=== PATIENT | male | born 1960 | race Caucasian/White ===

== ENCOUNTER 2018-06-07 01:11 | Emergency (ER) | payer OTHER ==
[~2018-06-07 01:11] MED LIST: TRAMADOL50 MG PO
--- NOTE | 2018-06-07 01:30 | ED PSYCHIATRIC COMPLAINT ---
History of Present Illness General Chief Complaint: Psychiatric Related Complaint Stated Complaint: BIBA +SI Source: patient, EMS, police Exam Limitations: intoxication Vital Signs & Intake/Output Vital Signs & Intake/Output Vital Signs Date Time Temp Pulse Resp B/P B/P Pulse O2 O2 Flow FiO2 Mean Ox Delivery Rate 06/07 1453 97.8 94 18 137/81 96 Room Air 06/07 1055 98.3 89 20 134/74 96 Room Air 06/07 0901 98.5 82 18 128/73 96 Room Air Room Air 06/07 0652 98.2 87 18 135/76 98 Room Air 06/07 0142 97.5 91 18 141/91 98 Room Air 06/07 0121 Room Air Triage Note: PT BIBA FROM HOME. PER PAPERWORK PT, "STATED HE WAS UPSET AND WAS GOING TO KILL HIS LAND LORD BY PUSHING HIM DOWN THE STAIRS THEN KILLING HIMSELF". SECURITY AT BEDSIDE FOR WANDING AND CHANGING. Triage Nurses Notes Reviewed? yes Onset: Abrupt Duration: hour(s): Timing: recent history Severity: moderate Associated Symptoms: suicidal ideation HPI: 58 yo gentleman presents on police PEER due to suicidality and homicidality. Per the police, he has been drinking tonight. He called a friend and threatened to kill his landlord by pushing him down the stairs and then killing himself. She called 911. He denies SI/HI. "I just want to go home.... It was a stupid thing to say." He reports drinking tonight, but denies other drugs. (Kelton MEYER,Chidi Julian) Allergies Coded Allergies: erythromycin base (Mild, NAUSEA 06/07/18) Reconcile Medications Amlodipine Besylate 10 MG TABLET 1 TAB PO DAILY HEART (Reported) Buspirone HCl 5 MG TABLET 3 TAB PO BID MENTAL HEALTH (Reported) Cyclosporine (Restasis) 0.05 % DROPERETTE 1 GTT OPH BID EYE (Reported) Esomeprazole (Nexium) 40 MG CAPSULE.DR 1 CAP PO BID GI (Reported) Levothyroxine Sodium 50 MCG TABLET 1 TAB PO DAILY AC THYROID (Reported) Losartan Potassium 100 MG TABLET 1 TAB PO DAILY HEART (Reported) Venlafaxine HCl (Venlafaxine HCl ER) 150 MG CAP.ER.24H 1 CAP PO DAILY MENTAL HEALTH (Reported) Venlafaxine HCl (Effexor XR) 75 MG CAP.ER.24H 1 CAP PO DAILY MENTAL HEALTH ( Reported) (Regan Fry DO) Past History Medical History Any Pertinent Medical History? see below for history Cardiovascular: hypertension Psychiatric: depression Surgical History Surgical History: non-contributory Psychosocial History What is your primary language Lao Family History Hx Contributory? No (Kelton MEYER,Chidi Julian) Review of Systems Review of Systems Constitutional: Denies: see HPI. (Kelton MEYER,Chidi Julian) Physical Exam Physical Exam General Appearance: well developed/nourished, no apparent distress Head: atraumatic, normal appearance Eyes: Bilateral: normal appearance. Ears, Nose, Throat: normal pharynx, normal ENT inspection Neck: normal inspection, supple, full range of motion Respiratory: normal breath sounds, chest non-tender, no respiratory distress, quiet respiration, lungs clear Cardiovascular: regular rate/rhythm Gastrointestinal: normal bowel sounds, soft, non-tender, no organomegaly Extremities: normal range of motion Neurological/Psychiatric: no motor/sensory deficits, awake, agitated, oriented x 3 Appearance/Memory/Insight: disheveled, impaired insight Behavoir/Eye Contact/Speech: cooperative Thoughts/Hallucinations: no apparent hallucination Skin: intact, normal color, warm/dry SAD PERSONS SAD PERSONS Response Value Male Sex? yes 1 Age <19 or >45 years? yes 1 Depression/Hopelessness? yes 2 Excessive Ethanol/Drug Use? yes 1 Rational Thinking Loss? yes 2 Single//? yes 1 Social Support? has support 0 Total 8 SAD PERSONS Done? yes (Kelton MEYER,Chidi Julian) Progress Differential Diagnosis: alochol intoxication vs suicidality vs homicidality vs other. Plan of Care: Orders Procedure Date/time Status Regular Diet 06/08 B Active Continuous Observation Monitor 06/07 131 Active URINE DRUG SCREEN FOR ER ONLY 06/07 131 Complete ETHANOL 06/07 131 Complete COMPREHENSIVE METABOLIC PANEL 06/07 131 Complete CBC WITHOUT DIFFERENTIAL 06/07 131 Complete ED CRISIS PSYCH CONSULT 06/07 131 Active Laboratory Tests 06/07/18 0147: Anion Gap 17 H, Estimated GFR > 60, BUN/Creatinine Ratio 10.0, Glucose 113 H, Calcium 9.1, Total Bilirubin 0.2, AST 38, ALT 39, Alkaline Phosphatase 53, Total Protein 7.3, Albumin 4.5, Globulin 2.8, Albumin/Globulin Ratio 1.6, CBC w Diff NO MAN DIFF REQ, RBC 4.01 L, MCV 97.5 H, MCH 34.1 H, MCHC 34.9, RDW 13.6, MPV 7.8, Gran % 63.2, Lymphocytes % 26.6, Monocytes % 6.5, Eosinophils % 2.6, Basophils % 1.1, Absolute Granulocytes 7.2 H, Absolute Lymphocytes 3.0, Absolute Monocytes 0.7 H, Absolute Eosinophils 0.3, Absolute Basophils 0.1, Serum Alcohol 256.0 06/07/18 0139: Urine Opiates Screen < 100, Methadone Screen 43, Barbiturate Screen < 60, Ur Phencyclidine Scrn < 6.00, Amphetamines Screen < 100, U Benzodiazepines Scrn < 85, Urine Cocaine Screen < 50, Urine Cannabis Screen > 80.00 H Hand-Off Endorsed To: Regan Fry DO Endorsed Time: 0700 Pending: consult, labs (Kelton MEYER,Chidi Julian) Comments: Addendum at 1546 hrs. on 06/07/[address] Fry: I assumed care from Dr. Melara this morning at 7 AM shift change awaiting crisis evaluation. The crisis team did see the patient and they have deemed him appropriate for outpatient follow-up. He will follow-up with outpatient crisis resources. Stable at time of discharge. (Regan Fry DO) Departure Departure Disposition: HOME OR SELF CARE Condition: Stable Clinical Impression Primary Impression: Alcohol intoxication Referrals: Higinio MEYER,Mario Hinojosa (PCP/Family) Departure Forms: Customer Survey General Discharge Information Comments pt given ativan 2mg orally x 1... elevated etoh level noted urine drug screen pending pt to be evaluated by crises in AM. (Kelton MEYER,Chidi Julian)
[2018-06-07 02:00] LABS: ABSOLUTE BASOPHIL COUNT 0.1 /CUMM (0.0-0.2); ABSOLUTE EOSINOPHIL COUNT 0.3 /CUMM (0.0-0.7); ABSOLUTE GRANULOCYTE CT 7.2 /CUMM (1.4-6.5); ABSOLUTE MONOCYTE COUNT 0.7 /CUMM (0.10-0.60); BASOPHIL % 1.1 % (0.0-2.0); EOSINOPHIL % 2.6 % (0-5); GRANULOCYTE % 63.2 % (42.2-75.2); HEMATOCRIT 39.1 % (42-52); MEAN CORPUSCULAR HGB 34.1 PG (27.0-31.0); MEAN CORPUSCULAR HGB CONC 34.9 G/DL (33.0-37.0); MEAN CORPUSCULAR VOLUME 97.5 FL (80.0-94.0); MEAN PLATELET VOLUME 7.8 FL (7.4-10.4); PLATELET COUNT 241 /CUMM (130-400); RBC DISTRIBUTION WIDTH 13.6 % (11.5-14.5); RED BLOOD CELL CT 4.01 /CUMM (4.70-6.10); WHITE BLOOD CELL COUNT 11.4 /CUMM (4.8-10.8)
[2018-06-07] MEDS ORDERED: VENLAFAXINE HC150 MG PO (08:17)
[2018-06-07] MEDS ORDERED: NEXIUM40 M1 PO (08:18)
[2018-06-07] MEDS ORDERED: LEVOTHYROXINE50 MCG PO (08:22)
[2018-06-07] MEDS ORDERED: EFFEXOR XR75 M1 PO (08:22)
[2018-06-07] MEDS ORDERED: BUSPIRONE HCL5 M1 PO (08:22)
[2018-06-07] MEDS ORDERED: LOSARTAN POTAS100 M1 PO (08:23)
[2018-06-07] MEDS ORDERED: RESTASIS1 EACH OPH (08:23)
[2018-06-07] MEDS ORDERED: AMLODIPINE BESY10 M1 PO (08:23)
--- NOTE | 2018-06-07 13:34 | ED PSYCH CRISIS CONSULTATION ---
Crisis Consult Basic Assessment Date of Consult: 06/07/18 Responsible Person/Accompanied By: Aamir Noonan, brother, Insurance Authorization: Insurance #1: Insurance name: JANESSA PLATT Phone number: Policy number: [id number] Group number: Authorization number: ED Provider: Patient's ED Provider: Regan Fry DO Primary Care Physician: Patient's PCP: Higinio MEYER,Mario Hinojosa PCP's Current Psychiatrist: Dr Amezquita Chief Complaint: Psychiatric Related made H I & S I text Patient's Quote: " I had a few too many. I was pissed. I didit, but didn't mean this" Present Illness: Patient is a 58 year old male who was brought to [facility] E.[facility] via ambulance, after the police were made aware of a text that patient had made about "going to kill his landlord by pushinghim down the stairs then killing himself". Patient states that he had lived in that apartment for more than 3 years, and that he had always paid rent on time, but that landlord raised it "suddenly", and patient did not pay the rent on time, but, then he had given him a check for 2 months rent at inc reased amount, but landlord did not accept the check, and started eviction procedures. Patient reports that he had gone out with a friend who was visiting from out of state, and admits that they had been drinking all afternoon, and he texted while he was intoxicated. Patient now states that he wouldn't do such a thing:"I wouldn't have the balls". Patient was not taking E D visit very seriously, and seemed to be trying to give the most expediant response, so that he could get back home. Patient has many stressors, and has been struggling for a number of years. He is a father of 2, and he has very limited if any contact with his family. Friend had stated that patient was not invited to his grandson's latter day, but patient speaks fondly of having a grandchild. Patient's brother reports that he has had limited contact with patient for some time , and states that the other siblings all get together often,. but patient, Aldo, is a "recluse". Patient has not worked in 4-5 years since his mother 5 years ago. Patient was very affected by her dfeath. He stopped working shortly afterward and he has been living off his inheritance ev er since, and that money has now run out. Patient is now applying for disability due to knee and hand pain, and states he cant work. Patient is unsure of what he will do following the eviction. Patient has not been very close with others, soi he may not be able to have any assistance from others. Patient was fully alert and oriented during interview. Patient was smiling during our meeting and did not appear to take incident seriously. He states that nit was due to the alcohol. Spoke with Dr. Amezquita, from [facility] out-patient department, who has seen patient for first time 2 weeks ago. She does not know the patient well, but repoted that she saw him as being "on the edge, and would not be surprised if he was hospitalized". Patient adamantly denies feeling suicidal or homicdal. Patient states that he would not ever hurt himself, and states that he wouldnt hurt others, and never has. Patient does not want to be admitted. He states that he "can handle the alcohol on my own", but was given detox facillioties information. Patient also stated that he has too much to do at present to attend IOP at this time. Patient's Address: [address] [place] [address] Other Phone Number: Who Do You Live With? Patient/Self Family/Informants Interviewed: Aamir Noonan, brother [phone] Allergies - Coded Allergies: erythromycin base (Mild, NAUSEA 06/07/18) Current Medications - Scheduled Medications Amlodipine Besylate 10 MG TABLET 1 TAB PO DAILY HEART #90 (Reported) Entered as Reported by Calin De La Cruz on 06/07/18 0823 Buspirone HCl 5 MG TABLET 3 TAB PO BID MENTAL HEALTH #90 (Reported) Entered as Reported by Calin De La Cruz on 06/07/18 0822 Cyclosporine (Restasis) 0.05 % DROPERETTE 1 GTT OPH BID EYE #180 (Reported) Entered as Reported by Calin De La Cruz on 06/07/18822 Esomeprazole (Nexium) 40 MG CAPSULE.DR 1 CAP PO BID GI #60 (Reported) Entered as Reported by Calin De La Cruz on 06/07/18817 Levothyroxine Sodium 50 MCG TABLET 1 TAB PO DAILY AC THYROID #30 (Reported) Entered as Reported by Calin De La Cruz on 06/07/18821 Losartan Potassium 100 MG TABLET 1 TAB PO DAILY HEART #90 (Reported) Entered as Reported by Calin De La Cruz on 06/07/18822 Venlafaxine HCl (Venlafaxine HCl ER) 150 MG CAP.ER.24H 1 CAP PO DAILY MENTAL HEALTH #30 (Reported) Entered as Reported by Calin De L aCruz on 06/07/18816 Venlafaxine HCl (Effexor XR) 75 MG CAP.ER.24H 1 CAP PO DAILY MENTAL HEALTH #30 (Reported) Entered as Reported by Calin De La Cruz on 06/07/18821 Laboratory Results: Laboratory Tests 06/07/18 014: Anion Gap 17 H, Estimated GFR > 60, BUN/Creatinine Ratio 10.0, Glucose 113 H, Calcium 9.1, Total Bilirubin 0.2, AST 38, ALT 39, Alkaline Phosphatase 53, Total Protein 7.3, Albumin 4.5, Globulin 2.8, Albumin/Globulin Ratio 1.6, CBC w Diff NO MAN DIFF REQ, RBC 4.01 L, MCV 97.5 H, MCH 34.1 H, MCHC 34.9, RDW 13.6, MPV 7.8, Gran % 63.2, Lymphocytes % 26.6, Monocytes % 6.5, Eosinophils % 2.6, Basophils % 1.1, Absolute Granulocytes 7.2 H, Absolute Lymphocytes 3.0, Absolute Monocytes 0.7 H, Absolute Eosinophils 0.3, Absolute Basophils 0.1, Serum Alcohol 256.0 06/07/18 0139: Urine Opiates Screen < 100, Methadone Screen 43, Barbiturate Screen < 60, Ur Phencyclidine Scrn < 6.00, Amphetamines Screen < 100, U Benzodiazepines Scrn < 85, Urine Cocaine Screen < 50, Urine Cannabis Screen > 80.00 H Past History Past Medical History Neurological: NONE EENT: NONE Cardiovascular: hypertension Respiratory: NONE Gastrointestinal: NONE Hepatic: NONE Renal: NONE Musculoskeletal: NONE Psychiatric: depression Endocrine: NONE Blood Disorders: NONE Cancer(s): NONE DRAW TENDER/Reproductive: NONE Past Surgical History Surgical History: non-contributory Psychosocial History Strengths/Capabilities: patient has been resourceful Potentially patient could get family support Physical Limitations (Interventions): patient states that he has many problems with his knees Psychiatric Treatment History Psych Treatment Psychiatric Treatment Yes Inpatient Treatment No Outpatient Treatment Yes Location of Treatment [facility] in [facility] Reason for Treatment depression anxiety Dates of Treatment past 15 years Response to Treatment fair Diagnosis by History: Major Depressive Disorder F 30 Alcohol Use Disorder F Canbnabis use Disorder F Substance Use/Abuse History Drug Use/Abuse 1 Substances Used/Abused Yes Substance Used/Abused Alcohol First Use teen Last Used Yesterday How much used/taken varies. had a lot yesterday How often daily For how long 30-40 years-----but not always daily Route of use p.o,. Drug Use/Abuse 2 Substances Used/Abused Yes Substance Used/Abused Marijuana First Use teens Last Used yesterday How much used/taken joint, sometimes 2 How often daily For how long 30-40 years Route of use smoke Substance Abuse Treatment Substance Abuse Treatment Past Substance Abuse [place] No Current Mental Status Mental Status Orientation: Person, Place, Situation Affect: Anxious (minimizing. ), Inappropriate Speech: Evasive, Poverty Neuro-vegetative: Energy Decreased, Sleep Disturbance Appearance Appearance- Dress/Hygiene: disheveled Behaviors Thought Process: Tangential, "going through the motions" Thought Content: WNL Memory: WNL ( but evasive) Insight: Fair SI/HI Risk Assessment Past Suicidal Ideation/Attempts Yes Current Suicidal Ideation/Att Yes Past Homicidal Ideation/Att: No Current Homicidal Ideation/Attempts Yes (made statement: denies now) Degree of Intent: Thoughts/No Intent Risk Factors: high anxiety/distress, history of suicide atmpts, substance abuse, lives alone, male, limited support Lethality Ratin (mild) PTSD Checklist PTSD Done? patient declined ED Management Sitter: Yes Restraints: No DSM5/PS Stressors/Medical Prob Diagnosis' (DSM 5, Stressors, Medical): Major Depressive Disorder F 32.1 Alcohol Use Disorder F 10.20 Cannabis Use Disorder F 12.20 Current GAF: 44 Comments: Patient denies any thoughts of hurting self or others. Patient states that he was drinking, but not serious, and no intent to act. Patient was encouraged to get alcohol detox or treatment. He was also encouraged to attend our IOP program, due to his stressors. Patient declined both suggestions, but took the information. Departure Disposition Psych Medical Clearance Date: 06/07/18 Medically Cleared at: 1155 Time Started: 1205 Time Ended: 1300 Psychiatrist Consulted: Chidi Villatoro MD Date Disposition Established: 06/07/18 Time Disposition Established: 1545 Plan for Disposition - Modality: Outpatient Facility: [facility] Contact: Dr Amezquita Rationale for Disposition: Patient not committable, and does not wish to stay. Patient strongly denies any S I or H I Additional Instructions: consider our IOP Referrals Higinio MEYER,Maroi Hinojosa (PCP/Family)
[2018-06-07 14:53] VITALS: BP 137/81
== END 2018-06-07 16:12 ==
LOC: ERH 01:11
PROVIDERS: Pediatrics
DX: F10.129 Alcohol abuse with intoxication, unspecified (principal); I10 Essential (primary) hypertension; F32.9 Major depressive disorder, single episode, unspecified
CPT/HCPCS: 80307; G0463; G0480